=== PATIENT | male | born 2000 | race Caucasian/White ===

== ENCOUNTER → 2020-08-03 | Outpatient (CLI) | payer OTHER ==
--- NOTE | 2020-08-03 15:14 | Diagnostic Imaging Report ---
PROCEDURE: MR imaging of the brain without contrast. TECHNIQUE: Multiplanar, multisequence MR imaging of the brain was performed without contrast. INDICATION: Dizziness. Right-sided hearing loss. Tunnel vision. COMPARISON: none FINDINGS: No acute ischemia, mass, or hemorrhage. The ventricles, cortical sulci, and basilar cisterns are symmetric and unremarkable. The sellar and suprasellar regions have a normal appearance. The course of the 7th and 8th cranial nerves is unremarkable bilaterally. No evidence of mass is seen. No evidence of CPA mass. The bilateral internal auditory canals are symmetric. The inner ear structures have a normal appearance bilaterally. The brainstem and posterior fossa are unremarkable. Mild mucosal thickening is seen in the left frontal sinuses and left anterior ethmoid sinuses. The mastoid air cells demonstrate normal signal characteristics. There is soft tissue prominence in the nasopharynx. The globes and orbits are symmetric and unremarkable. The scalp and calvarium have a normal appearance. IMPRESSION: 1. No acute ischemia, mass, or hemorrhage. 2. No evidence of mass along the course of the 7th and 8th cranial nerves. No CPA mass. 3. Soft tissue prominence in the nasopharynx. This most likely represents prominent adenoids. Recommend correlation with direct visualization. Dictated by: Dictated on workstation # [id number]
== END ==
LOC: RAD 14:11
PROVIDERS: ATTEND Internal Medicine
DX: R42 Dizziness and giddiness (principal)
CPT/HCPCS: 70551

== ENCOUNTER 2020-08-14 12:20 | Emergency (ER) | payer OTHER ==
[~2020-08-14] VITALS: Ht 172 cm; Wt 57.0 kg
[2020-08-14 12:25] VITALS: BP 133/71
--- NOTE | 2020-08-14 12:44 | ED EENT ---
History of Present Illness General Chief Complaint: Ear Problems Stated Complaint: RT EAR/JAW PAIN Nursing Triage Note: RIGHT SIDE WITH NAUSEA, LIGHTHEADED, DIZZY Source: patient Exam Limitations: no limitations History of Present Illness Date Seen by Provider: Aug 14, 2020 Time Seen by Provider: 12:25 Initial Comments Patient is a 19-year-old male who presents to the emergency department today with a chief complaint of right ear pain, headache, nausea, dizziness. Patient states that he has had a long history of issues regarding his right ear and dizz iness. Patient states that he has been told before that he has Mnire's disease. Patient does endorse some hearing changes over the last several days. Patient states that his primary doctor has given him prednisone for this condition. He states he ran out about a week to 2 weeks ago. Patient states that he takes ibuprofen sometimes 4 to 6 tablets at a time to alleviate his he adache. He states movement makes his symptoms worse. He states standing up, bending over, turning his head all intensify the symptoms. Patient denies any fevers, chills, cough, congestion. No other GI or symptoms reported. Patient states that he does not have follow-up scheduled with his primary care physician. Patient states that he did recently have an MRI of the brain, this study was reviewed by me, the patient had no acute findings on brain MRI. All other review of systems reviewed and negative except as stated. Timing/Duration: gradual Location: ear (R) Prearrival Treatment: no prearrival treatment Modifying Factors: Improves With Activity Associated Symptoms: change in hearing Allergies and Home Medications Allergies Coded Allergies: No Known Drug Allergies (Unverified , 08/14/20) Patient Home Medication List Home Medication List Reviewed: Yes Review of Systems Review of Systems Constitutional: dizziness Eyes: No Symptoms Reported Ears: Other (Right-sided earache) Nose: no symptoms reported Mouth: no symptoms reported Throat: no symptoms reported Respiratory: no symptoms reported Cardiovascular: no symptoms reported Gastrointestinal: no symptoms reported Musculoskeletal: no symptoms reported Skin: no symptoms reported Neurological: Headache Past Vnckzpq-Mcifpt-Dnyenx Hx Patient Social History Alcohol Use: Denies Use Recreational Drug Use: No Smoking Status: Current Everyday Smoker Type Used: Cigarettes 2nd Hand Smoke Exposure: No Recent Foreign Travel: No Contact w/Someone Who Travel: No Recent Infectious Disease Expo: No Physical Abuse: No Sexual Abuse: No Mistreated: No Fear: No Past Medical History Surgeries: No Respiratory: No Cardiac: No Neurological: No Genitourinary: No Gastrointestinal: No Musculoskeletal: No Endocrine: No HEENT: No Cancer: No Psychosocial: No Integumentary: No Blood Disorders: No Physical Exam Vital Signs Vital Signs - First Documented 08/14/20 12:25 Temp 36.4 Pulse 111 Resp 16 B/P (MAP) 133/71 (91) O2 Delivery Room Air Height, Weight, BMI Height: '" Weight: lbs. oz. kg; 19.00 BMI Method: General Appearance: WD/WN, thin Eyes: bilateral eye normal inspection, bilateral eye PERRL, bilateral eye EOMI Ears: bilateral ear auricle normal, bilateral ear canal normal (Patient has bilateral scarred TMs with a serous effusion noted behind each TM) Nose: normal inspection Mouth/Throat: normal mouth inspection, tonsillar swelling (Slightly enlarged right tonsil greater than left) Neck: non-tender, full range of motion, supple, lymphadenopathy (R) (Shotty anterior cervical lymphadenopathy more on the right than the left) Cardiovascular: regular rate, rhythm Respiratory: lungs clear, normal breath sounds, no respiratory distress, no accessory muscle use 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 Evaluation today includes a physical exam, review of the medical record. Patient has been out of his prednisone for the last week. He has never tried meclizine for his dizziness. He is only had Phenergan. Patient states that he was prescribed a new medication which she cannot afford. He cannot recall the name of it. Patient will be treated in the emergency room with 30 mg of Toradol IM and 25 mg of meclizine p.o. He will be given a prescription for the meclizine as well as a refill of low-dose prednisone, 20 mg. Patient is strongly suggested to follow- up with his primary care physician and long-term he might need to see an ear nose and throat doctor. Patient verbalizes understanding of the plan of care and is comfortable with it. All questions were sought and answered he is stable for discharge. Departure Impression Primary Impression: Dizziness Additional Impression: Headache Qualified Codes: G44.229 - Chronic tension-type headache, not intractable Disposition: HOME, SELF-CARE Condition: Stable Departure-Patient Inst. Decision time for Depature: 12:45 Referrals: ALEJA CONN MD (PCP/Family) Primary Care Physician Patient Instructions: Headache, Adult (DC), Vertigo (a Type of Dizziness) (DC) Add. Discharge Instructions: I have given you a prescription for meclizine which is a dizziness medication you can take this up to 3 times a day as needed for dizzy spells. I have also written you a prescription for low-dose prednisone. This will be a short course of 6 days long. Please always eat when you take prednisone and do not take large amounts of ibuprofen while taking the prednisone. Please follow-up with Dr. Conn, your primary care physician. You might also ask for referral to an ear nose and throat doctor for further evaluation of your dizziness, ear pain and headache. Return to the emergency department for any worsening symptoms, fevers, vision troubles, worsening headache or other emergent concerns. All discharge instructions reviewed with patient and/or family. Voiced understanding. Scripts Prednisone (Prednisone) 20 Mg Tab 20 MG PO DAILY, #6 TAB 0 Refills Prov: JACKIE SCHAFFER MD 08/14/20 Meclizine HCl (Meclizine HCl) 25 Mg Tablet 25 MG PO Q8H PRN for dizziness, #30 TAB Prov: JACKIE SCHAFFER MD 08/14/20 JACKIE SCHAFFER MD Aug 14, 2020 12:44
[2020-08-14] MEDS ORDERED: MECLIZINE 25 MG (ANTIVERT) TAB PO ONE (12:45)
[2020-08-14] MEDS ORDERED: KETOROLAC 60 MG/2 ML VIAL IM ONE (12:45)
[2020-08-14] MEDS ORDERED: MECL-149 PO (12:48)
[2020-08-14] MEDS ORDERED: PRD20T PO (12:48)
== END 2020-08-14 12:51 | disposition home or self-care (01) ==
LOC: EDUNIT# 12:20 → ER FS 12:22
DX: R42 Dizziness and giddiness (principal); R51.9 Headache, unspecified; H65.93 Unspecified nonsuppurative otitis media, bilateral; F17.210 Nicotine dependence, cigarettes, uncomplicated
CPT/HCPCS: 99282